=== PATIENT | male | born 1985 | race Caucasian/White ===

== ENCOUNTER → 2017-10-12 | Emergency (ER) | payer OTHER ==
[~2017-10-12] VITALS: Ht 182.9 cm; Wt 95.2 kg
--- NOTE | 2017-10-13 20:41 | EKG ---
[facility] [address] [place], [place] [address] Signed Normal sinus rhythm Normal ECG No previous ECGs available Confirmed by BANDAR NATHAN MD ([id number] on 10/13/2017 8:41:40 PM Electronically Signed By: BANDAR NATHAN MD 10/13/172040 PATIENT NAME: SABRINA NAVA Electrocardiogram DATE OF : 87 PHYSICIAN: BANDAR NATHAN MD REPORT #: [id number] REPORT IS CONFIDENTIAL AND NOT TO BE RELEASED WITHOUT AUTHORIZATION
== END | disposition home or self-care (01) ==
LOC: ED 20:32
DX: S01.01XA Laceration without foreign body of scalp, initial encounter (principal); R55 Syncope and collapse; W22.8XXA Striking against or struck by other objects, initial encounter; Z87.891 Personal history of nicotine dependence
CPT/HCPCS: 90471; 90715; 93005; 93010; 99284